=== PATIENT | female | born 1975 | race Caucasian/White ===

== ENCOUNTER 2018-05-31 14:25 | Inpatient (IN) | payer OTHER ==
[2018-05-31 15:20] VITALS: BMI 22.9
--- NOTE | 2018-05-31 16:34 | HP ---
"CIWA Score Nausea/Vomitin-Cont. Nausea/Vomiting Muscle Tremors: 7-Severe,w/o Arm Extended Anxiety: 4-Mod. Anxious/Guarded Agitation: 4-Moderately Restless Paroxysmal Sweats: 3 Orientation: 0-Oriented Tacttile Disturbances: 0-None Auditory Disturbances: 0-None Visual Disturbances: 0-None Headache: 0-None Present CIWA-Ar Total Score: 25 - Admission Criteria OASAS Guidelines: Admission for Medically Managed Detox: Requires at least one of the followin. CIWA greater than 12 2. Seizures within the past 24 hours 3. Delirium tremens within the past 24 hours 4. Hallucinations within the past 24 hours 5. Acute intervention needed for co occurring medical disorder 6. Acute intervention needed for co occurring psychiatric disorder 7. Severe withdrawal that cannot be handled at a lower level of care (continued vomiting, continued diarrhea, abnormal vital signs) requiring intravenous medication and/or fluids 8. Patient presents the following: CIWA greater than 12 Admission Criteria Met: Admission criteria met Admission ROS [facility] - [facility] Chief Complaint: Alcohol withdrawal Allergies/Adverse Reactions: Allergies Allergy/AdvReac Type Severity Reaction Status Date / Time Penicillins Allergy Unknown Verified 05/31/18 16:27 History of Present Illness: Here to treat my alcohol problem. This is the first detox admission for this patient. Patient has had 3 inpatient admissions for complications r/t alcohol use, but never admitted for detox. Binge alcohol use since age 18. Continuous alcohol use since age 37. 1 pint vodka daily. Cannabis use disorder. Intermittent Nicotine use disorder. States seizure 1 year ago r/t alcohol withdrawal. Hx: Hematemesis - 1 month a go and about 1 year ago. Tachycardia and chest pain r/t anxiety. Low magnesium level MHHx: Depression and anxiety. Denies thoughts of harming self or others. Search Terms: Mansi Cope, 1975 Search Date: 05/31/2018 10:59:31 PM The Drug Utilization Report below displays all of the controlled substance prescriptions, if any, that your patient has filled in the last twelve months. The information displayed on this report is compiled from pharmacy submissions to the Department, and accurately reflects the information as submitted by the pharmacies. This report was requested by: Melanie Theodore | Reference #: [id number] There are no results for the search terms that you entered. Exam Limitations: No Limitations - Ebola screening Have you traveled outside of the country in the last 21 days: No (N) Have you had contact with anyone from an Ebola affected area: No Have you been sick,other than usual withdrawal symptoms: No Do you have a fever: No - Review of Systems Constitutional: Chills, Diaphoresis, Changes in sleep (Sleeps 'too' much) EENT: reports: Blurred Vision Respiratory: reports: No Symptoms reported Cardiac: reports: Chest Pain (r/t alcohol withdrawal), Palpitations ( tachtcardia r/t anxiety and alcohol withdrawal) GI: reports: Vomiting, Other (Hx r/t vomiting blood 1 month ago) : reports: No Symptoms Reported Musculoskeletal: reports: No Symptoms Reported Integumentary: reports: Bruising Neuro: reports: Tremors Endocrine: reports: No Symptoms Reported Hematology: reports: Anemia (Low magnesium) Psychiatric: reports: Judgement Intact, Orientated x3, Agitated, Anxious, Depressed (Denies thoughts of harming self or others) Patient History - PPD History Previous Implant?: Yes Documented Results: Negative w/o proof Implanted On Prior R Admission?: No PPD to be Administered?: Yes - Reproductive History Patient is a Female of Child Bearing Age (11 -55 yrs old): Yes Last Menstrual Period: 05/24/18 Patient : No - Smoking Cessation Smoking history: Current some day smoker Have you smoked in the past 12 months: Yes Aproximately how many cigarettes per day: 1 Hx Chewing Tobacco Use: No Initiated information on smoking cessation: Yes 'Breaking Loose' booklet given: 05/31/18 - Substance & Tx. History Hx Alcohol Use: Yes Hx Substance Use: Yes Substance Use Type: Alcohol Hx Substance Use Treatment: No (Hospitalizations for complications of use) - Substances Abused Alcohol Route: Oral Frequency: Daily Amount used: 1 pint Age of first use: 18 Date of Last Use: 05/31/18 Admission Physical Exam [facility] - Vital Signs Vital Signs: Vital Signs - 24 hr 05/31/18 15:15 Temperature 98.6 F Pulse Rate 121 H Respiratory 20 Rate Blood Pressure 120/81 - Physical General Appearance: Yes: Moderate Distress, Alcohol on Breath, Tremorous, Sweating, Anxious HEENTM: Yes: Normocephalic, Normal Voice Respiratory: Yes: Lungs Clear, Normal Breath Sounds Neck: Yes: No masses,lesions,Nodules, Supple Breast: Yes: Breast Exam Deferred Cardiology: Yes: Regular Rhythm, S1, S2, Tachycardia Abdominal: Yes: Flat, Soft, Increased Bowel Sounds, Other (Actively vomiting gastric fluids) Genitourinary: Yes: Within Normal Limits Back: Yes: Normal Inspection Musculoskeletal: Yes: full range of Motion, Gait Steady Extremities: Yes: Normal Capillary Refill, Normal Range of Motion, Non-Tender, Tremors Neurological: Yes: site project manager II-XII NML intact, Fully Oriented, Alert, Motor Strength 5/5 Integumentary: Yes: Normal Color, Warm, Diaphoresis Lymphatic: Yes: Within Normal Limits - Diagnostic (1) Alcohol dependence with uncomplicated withdrawal Current Visit: Yes Status: Acute (2) Tachycardia Current Visit: Yes Status: Acute Comment: Most probably r/t withdrawal symptoms (3) History of hematemesis Current Visit: No Status: Chronic (4) Cannabis dependence, uncomplicated Current Visit: Yes Status: Chronic (5) Nicotine dependence, uncomplicated Current Visit: Yes Status: Chronic Qualifiers: Nicotine product type: cigarettes Qualified Code(s): F17.210 - Nicotine dependence, cigarettes, uncomplicated Cleared for Admission [facility] - Detox or Rehab [facility] Level of Care: Medically Managed Detox Regimen/Protocol: Librium [facility] Breath Alcohol Content Breath Alcohol Content: 0.146 Urine Pregancy Test - Result Urine Test Results: Negative - NO line present Urine Drug Screen - Results Drug Screen Negative: No Urine Drug Screen Results: THC-Marijuana Inpatient Rehab Admission - Rehab Decision to Admit Inpatient rehab admission?: No"
[2018-05-31] MEDS ORDERED: NICOTINE POLACRILEX 2 MG GUM BUC PRN (17:01)
[2018-05-31] MEDS ORDERED: IBUPROFEN 400 MG TABLET (FP) PO PRN (17:01)
[2018-05-31] MEDS ORDERED: MAGNESIUM HYDROX 2400MG/30ML ORAL SUSPENSION 30 ML CUP PO PRN (17:01)
[2018-05-31] MEDS ORDERED: guaiFENesin 200 MG/10 ML 10 ML UNIT-DOSE CUPS PO PRN (17:01)
[2018-05-31] MEDS ORDERED: ACETAMINOPHEN 325 MG TABLET (FP) PO PRN ×2 (17:01)
[2018-05-31] MEDS ORDERED: MAGNESIUM CITRATE 300 ML BOTTLE PO PRN (17:01)
[2018-05-31] MEDS ORDERED: chlordiazePOXIDE HCL 25 MG CAPSULE PO PRN (17:01)
[2018-05-31] MEDS ORDERED: MENTHOL/PHENOL 1 EACH UD MM PRN (17:01)
[2018-05-31] MEDS ORDERED: BISMUTH SUBSALICYLATE 524 MG/30 ML UD PO PRN (17:01)
[2018-05-31] MEDS ORDERED: MAG HYDROX/AL HYDROX/SIMETH 30 ML UNIT-DOSE CUP PO PRN (17:01)
[2018-05-31] MEDS ORDERED: chlordiazePOXIDE HCL 25 MG CAPSULE PO ONE (17:30)
[2018-05-31] MEDS: ONDANSETRON *ODT* 4 MG TABLET SL PRN (17:45)
[2018-05-31] MEDS: THIAMINE HCL 100 MG TABLET (FP) PO SCH (22:25)
[2018-05-31] MEDS: hydrOXYzine PAMOATE 50 MG CAPSULE (FP) PO PRN (22:25)
[2018-05-31] MEDS: chlordiazePOXIDE HCL 25 MG CAPSULE PO SCH (22:26)
[2018-06-01] MEDS: chlordiazePOXIDE HCL 25 MG CAPSULE PO SCH ×4 (05:25→22:43)
[2018-06-01] MEDS: ONDANSETRON *ODT* 4 MG TABLET SL PRN (06:43)
[2018-06-01] MEDS: PRENATAL VITAMINS W/ FOLIC ACID TABLET (FP) PO SCH (10:10)
[2018-06-01 10:58] LABS: ALBUMIN 3.9 g/dl (3.4-5.0); ALK PHOS 117 U/L (45-117); ANION GAP 9 MMOL/L (8-16); BILIRUBIN,TOTAL 1.3 mg/dL (0.2-1); BLOOD UREA NITROGEN 7 mg/dL (7-18); CALCIUM 8.6 mg/dL (8.5-10.1); CHLORIDE 98 mmol/L (98-107); CO2 30 mmol/L (21-32); CREATININE 0.8 mg/dL (0.55-1.3); GLUCOSE,RANDOM 94 mg/dL (74-106); HEMATOCRIT 43.4 % (32.4-45.2); HEMOGLOBIN 14.5 GM/dL (10.7-15.3); MAGNESIUM 1.9 mg/dL (1.8-2.4); MCH 32.5 pg (25.7-33.7); MCHC 33.4 g/dl (32.0-36.0); MEAN CELL VOLUME 97.3 fl (80-96); MEAN PLT VOLUME 8.8 fl (7.5-11.1); PLATELET COUNT 222 K/MM3 (134-434); POTASSIUM 3.8 mmol/L (3.5-5.1); RBC 4.46 M/mm3 (3.60-5.2); RDW 15.9 % (11.6-15.6); SGOT/AST 110 U/L (15-37); SGPT/ALT 72 U/L (13-61); SODIUM 137 mmol/L (136-145); TOT PROT 7.5 g/dl (6.4-8.2); WHITE BLOOD COUNT 5.4 K/mm3 (4.0-10.0)
--- NOTE | 2018-06-01 15:00 | PN ---
[facility] CIWA - CIWA Score Nausea/Vomitin Muscle Tremors: 2 Anxiety: 2 Agitation: 2 Paroxysmal Sweats: 2 Orientation: 0-Oriented Tacttile Disturbances: 2-Mild Itch/Numbness/Burn Auditory Disturbances: 0-None Visual Disturbances: 0-None Headache: 2-Mild CIWA-Ar Total Score: 14 BHS Progress Note (SOAP) Subjective: Sweats, shakes,nausea and abdominal cramps Objective: 06/01/18 14:59 Last Vital Signs Temp Pulse Resp BP Pulse Ox 98.1 F 86 18 116/82 06/01/18 14:35 06/01/18 14:35 06/01/18 14:35 06/01/18 14:35 06/01/18 06/01/18 07:45 07:45 WBC 5.4 RBC 4.46 Hgb 14.5 Hct 43.4 MCV 97.3 H MCHC 33.4 RDW 15.9 H Plt Count 222 Sodium 137 Potassium 3.8 Chloride 98 Carbon Dioxide 30 Anion Gap 9 BUN 7 Creatinine 0.8 Labs noted Assessment: 06/01/18 15:00 Withdrawal sx Plan: Continue detox
[2018-06-01] MEDS: THIAMINE HCL 100 MG TABLET (FP) PO SCH (22:43)
[2018-06-01] MEDS: MELATONIN 5 MG TABLETS PO PRN (22:43)
[2018-06-02] MEDS: chlordiazePOXIDE HCL 25 MG CAPSULE PO SCH ×3 (06:26→17:50)
[2018-06-02] MEDS: PRENATAL VITAMINS W/ FOLIC ACID TABLET (FP) PO SCH (10:29)
[2018-06-02 10:51] LABS: EPI CELLS 18.7 /HPF (0-5); URINE APPEARANCE TURBID; URINE BACTERIA 6132.3 /hpf (NEGATIVE); URINE BILIRUBIN 1+ (NEGATIVE); URINE COLOR ORANGE; URINE GLUCOSE (UA) NEGATIVE (NEGATIVE); URINE KETONE 1+ (NEGATIVE); URINE LEUK ESTERASE 2+ (NEGATIVE); URINE NITRITE POSITIVE (NEGATIVE); URINE PROTEIN 2+ (NEGATIVE); URINE WBC 144 /hpf (0-5)
--- NOTE | 2018-06-02 13:53 | PN ---
[facility] CIWA - CIWA Score Nausea/Vomitin-No Nausea/No Vomiting Muscle Tremors: 3 Anxiety: 3 Agitation: 3 Paroxysmal Sweats: 3 Orientation: 0-Oriented Tacttile Disturbances: 0-None Auditory Disturbances: 0-None Visual Disturbances: 0-None Headache: 0-None Present CIWA-Ar Total Score: 12 S Progress Note (SOAP) Subjective: sweats shakes I need to see the psychiatrist for my depression anxiety interrupted sleep Objective: 06/02/18 13:52 Vital Signs Temperature 98.2 F 06/02/18 10:03 Pulse Rate 98 H 06/02/18 10:03 Respiratory Rate 18 06/02/18 10:03 Blood Pressure 117/90 06/02/18 10:03 O2 Sat by Pulse Oximetry (%) Laboratory Tests 06/01/18 06/01/18 06/01/18 07:45 07:45 07:45 WBC 5.4 RBC 4.46 Hgb 14.5 Hct 43.4 MCV 97.3 H MCH 32.5 MCHC 33.4 RDW 15.9 H Plt Count 222 MPV 8.8 Sodium 137 Potassium 3.8 Chloride 98 Carbon Dioxide 30 Anion Gap 9 BUN 7 Creatinine 0.8 Creat Clearance w eGFR 78.29 Random Glucose 94 Calcium 8.6 Magnesium 1.9 Total Bilirubin 1.3 H AST 110 H ALT 72 H Alkaline Phosphatase 117 Total Protein 7.5 Albumin 3.9 Urine Color Urine Appearance Urine pH Ur Specific [place] Urine Protein Urine Glucose (UA) Urine Ketones Urine Blood Urine Nitrite Urine Bilirubin Urine Urobilinogen Ur Leukocyte Esterase Urine WBC (Auto) U Epithel Cells (Auto) Urine Bacteria (Auto) RPR Titer Nonreactive 06/02/18 07:50 WBC RBC Hgb Hct MCV MCH MCHC RDW Plt Count MPV Sodium Potassium Chloride Carbon Dioxide Anion Gap BUN Creatinine Creat Clearance w eGFR Random Glucose Calcium Magnesium Total Bilirubin AST ALT Alkaline Phosphatase Total Protein Albumin Urine Color [place] Urine Appearance Turbid Urine pH 6.0 Ur Specific [place] 1.031 Urine Protein 2+ H Urine Glucose (UA) Negative Urine Ketones 1+ H Urine Blood Negative Urine Nitrite Positive H Urine Bilirubin 1+ H Urine Urobilinogen 1.0 Ur Leukocyte Esterase 2+ H Urine WBC (Auto) 144 U Epithel Cells (Auto) 18.7 Urine Bacteria (Auto) 6132.3 RPR Titer labs noted repeat u/a with c&s pt denies UTI aaox3 ambulating no acute distress Assessment: 06/02/18 13:53 withdrawal sx Plan: continue detox increase fluids pending repeated urine test psych has been ordered.
[2018-06-02 14:34] LABS: URINE CASTS NONE SEEN /hpf (0-8); URINE RBC 6.7 /hpf (0-4); YEAST NONE SEEN (NEGATIVE)
[2018-06-02] MEDS: chlordiazePOXIDE HCL 10 MG CAPSULE PO SCH (22:06)
[2018-06-02] MEDS: MELATONIN 5 MG TABLETS PO PRN (22:07)
[2018-06-02] MEDS: THIAMINE HCL 100 MG TABLET (FP) PO SCH (22:07)
[2018-06-02] MEDS ORDERED: chlordiazePOXIDE HCL 10 MG CAPSULE PO PRN (23:00)
[2018-06-03] MEDS: chlordiazePOXIDE HCL 10 MG CAPSULE PO SCH ×4 (06:18→22:28)
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
[2018-06-03] MEDS: PRENATAL VITAMINS W/ FOLIC ACID TABLET (FP) PO SCH (10:22)
--- NOTE | 2018-06-03 10:34 | PN ---
[facility] Progress Note (SOAP) Subjective: sweats feeling much better Objective: 06/03/18 10:53 Vital Signs Temperature 97.5 F L 06/03/18 08:58 Pulse Rate 99 H 06/03/18 08:58 Respiratory Rate 18 06/03/18 08:58 Blood Pressure 105/77 06/03/18 08:58 O2 Sat by Pulse Oximetry (%) Laboratory Tests 06/01/18 06/01/18 06/01/18 07:45 07:45 07:45 WBC 5.4 RBC 4.46 Hgb 14.5 Hct 43.4 MCV 97.3 H MCH 32.5 MCHC 33.4 RDW 15.9 H Plt Count 222 MPV 8.8 Sodium 137 Potassium 3.8 Chloride 98 Carbon Dioxide 30 Anion Gap 9 BUN 7 Creatinine 0.8 Creat Clearance w eGFR 78.29 Random Glucose 94 Calcium 8.6 Magnesium 1.9 Total Bilirubin 1.3 H AST 110 H ALT 72 H Alkaline Phosphatase 117 Total Protein 7.5 Albumin 3.9 Urine Color Urine Appearance Urine pH Ur Specific [place] Urine Protein Urine Glucose (UA) Urine Ketones Urine Blood Urine Nitrite Urine Bilirubin Urine Urobilinogen Ur Leukocyte Esterase Urine WBC (Auto) Urine RBC (Auto) Urine Casts (Auto) U Pathogenic Cast Auto U Epithel Cells (Auto) Urine Bacteria (Auto) Urine Yeast (Auto) RPR Titer Nonreactive 06/02/18 07:50 WBC RBC Hgb Hct MCV MCH MCHC RDW Plt Count MPV Sodium Potassium Chloride Carbon Dioxide Anion Gap BUN Creatinine Creat Clearance w eGFR Random Glucose Calcium Magnesium Total Bilirubin AST ALT Alkaline Phosphatase Total Protein Albumin Urine Color [place] Urine Appearance Turbid Urine pH 6.0 Ur Specific [place] 1.031 Urine Protein 2+ H Urine Glucose (UA) Negative Urine Ketones 1+ H Urine Blood Negative Urine Nitrite Positive H Urine Bilirubin 1+ H Urine Urobilinogen 1.0 Ur Leukocyte Esterase 2+ H Urine WBC (Auto) 144 Urine RBC (Auto) 6.7 Urine Casts (Auto) None seen U Pathogenic Cast Auto None seen U Epithel Cells (Auto) 18.7 Urine Bacteria (Auto) 6132.3 Urine Yeast (Auto) None seen RPR Titer repeated u/a pending results aaox3 ambulating no acute distress Assessment: 06/03/18 10:53 withdrawal sx Plan: continue detox increase fluids labs pending
--- NOTE | 2018-06-03 11:22 | EKG ---
Test Reason : Blood Pressure : / mmHG Vent. Rate : 086 BPM Atrial Rate : 086 BPM P-R Int : 128 ms QRS Dur : 080 ms QT Int : 390 ms P-R-T Axes : 057 040 051 degrees QTc Int : 466 ms NORMAL SINUS RHYTHM NORMAL ECG NO PREVIOUS ECGS AVAILABLE Confirmed by NIA VELAZQUEZ, ABEBE ([id number]) on 06/03/2018 11:21:45 AM Referred By: HOLGER RACHEL Confirmed By:ABEBE KRAMER MD
[2018-06-03 11:47] LABS: PH,URINE 6.5 (5.0-8.0); URINE APPEARANCE SL CLOUDY; URINE BILIRUBIN SMALL (NEGATIVE); URINE COLOR DK YELLOW; URINE GLUCOSE (UA) NEGATIVE (NEGATIVE); URINE KETONE 40 mg/dl (NEGATIVE)
[2018-06-03 11:48] LABS: URINE NITRITE POSITIVE (NEGATIVE); URINE PROTEIN TRACE (NEGATIVE)
[2018-06-03 11:49] LABS: EPI CELLS 6.9 /HPF (0-5); URINE BACTERIA 8105.9 /hpf (NEGATIVE); URINE LEUK ESTERASE LARGE (NEGATIVE); URINE RBC 3.3 /hpf (0-4); URINE WBC 116.9 /hpf (0-5)
[2018-06-03] MEDS: hydrOXYzine PAMOATE 50 MG CAPSULE (FP) PO PRN (19:41)
[2018-06-03] MEDS: THIAMINE HCL 100 MG TABLET (FP) PO SCH (22:28)
[2018-06-03] MEDS: MELATONIN 5 MG TABLETS PO PRN (22:28)
--- NOTE | 2018-06-04 09:15 | PN ---
EZ Progress Note Note: Discussed with patient if she had experienced any nausea/vomiting during her stay...pt denies of any s/s of Nausea/vomiting during her visit with our facility.
--- NOTE | 2018-06-04 09:22 | DS ---
[facility] Detox Discharge Summary Admission Date: 05/31/18 Discharge Date: 06/04/18 - History Present History: Alcohol Dependence, Cannabis Dependence - Physical Exam Results Vital Signs: Vital Signs Temperature 97.5 F L 06/04/18 05:00 Pulse Rate 85 06/04/18 05:00 Respiratory Rate 16 06/04/18 05:00 Blood Pressure 103/69 06/04/18 05:00 O2 Sat by Pulse Oximetry (%) - Treatment Hospital Course: Detox Protocol Followed, Detoxed Safely, Responded well, Discharged Condition Good, Rehab Referral Accepted - Medication Discharge Medications: Ambulatory Orders NK [No Known Home Medication] 05/31/18 - Diagnosis (1) Alcohol dependence with uncomplicated withdrawal Current Visit: Yes Status: Chronic (2) Cannabis abuse Current Visit: Yes Status: Chronic (3) Substance induced mood disorder Current Visit: Yes Status: Acute (4) Substance-induced sleep disorder Current Visit: Yes Status: Acute (5) Cannabis dependence, uncomplicated Current Visit: Yes Status: Chronic (6) Depressive disorder Current Visit: Yes Status: Chronic (7) Nicotine dependence, uncomplicated Current Visit: Yes Status: Chronic Qualifiers: Nicotine product type: cigarettes Qualified Code(s): F17.210 - Nicotine dependence, cigarettes, uncomplicated (8) Alcohol related seizure Current Visit: Yes Status: Resolved (9) Hematemesis Current Visit: Yes Status: Resolved (10) Borderline personality disorder Current Visit: Yes Status: Ruled-out (11) MDD (major depressive disorder) Current Visit: Yes Status: Ruled-out (12) History of hematemesis Current Visit: No Status: Resolved - AMA Did Patient Leave Against Medical Advice: No (pt referred to [facility].)
[2018-06-04] MEDS: chlordiazePOXIDE HCL 10 MG CAPSULE PO SCH (10:14)
[2018-06-04] MEDS: PRENATAL VITAMINS W/ FOLIC ACID TABLET (FP) PO SCH (10:14)
[2018-06-04 14:15] VITALS: BP 138/81; PULSE 104; TEMP 97.7
== END 2018-06-04 20:05 | disposition home or self-care (01) | DRG 775 ==
LOC: YASAS 14:25 → Y6N 16:55
PROVIDERS: ADMIT Surgery; ATTEND Surgery
PROC: HZ2ZZZZ Detoxification Services for Substance Abuse Treatment (ICD-10-PCS; principal; 2018-05-31)
DX: F10.230 Alcohol dependence with withdrawal, uncomplicated (principal); F12.20 Cannabis dependence, uncomplicated; F17.210 Nicotine dependence, cigarettes, uncomplicated; F19.282 Other psychoactive substance dependence with psychoactive substance-induced sleep disorder; F19.24 Other psychoactive substance dependence with psychoactive substance-induced mood disorder; F32.9 Major depressive disorder, single episode, unspecified; K92.0 Hematemesis; G40.509 Epileptic seizures related to external causes, not intractable, without status epilepticus; Z59.0 Homelessness
CPT/HCPCS: 36415; 80053; 81003; 83735; 85027; 86593; 93005; 93010; Q0162